=== PATIENT | female | born 2000 | race Caucasian/White ===

== ENCOUNTER → 2022-02-24 | Outpatient (CLI) | payer BC ==
[~2022-02-24] MED LIST: BACTRIM DS TAB1 EACH PO; CLARITIN10 M2 PO; IBUPROFEN600 MG PO; PRILOSEC OTC20 MG PO
== END ==
LOC: LAB 11:50
DX: Z32.00 Encounter for pregnancy test, result unknown (principal)
CPT/HCPCS: 36415; 84702

== ENCOUNTER 2022-03-03 20:51 | Emergency (ER) | payer OTHER ==
[2022-03-04] MEDS ORDERED: IBUPROFEN600 MG PO (03:31)
[2022-03-04] MEDS ORDERED: NORFLEX 100 MG100 MG PO (03:31)
== END 2022-03-04 03:38 | disposition home or self-care (01) ==
LOC: ER1 20:51
DX: S13.4XXA Sprain of ligaments of cervical spine, initial encounter (principal); S00.03XA Contusion of scalp, initial encounter; S40.012A Contusion of left shoulder, initial encounter; Z88.5 Allergy status to narcotic agent; V49.40XA Driver injured in collision with unspecified motor vehicles in traffic accident, initial encounter; Y92.410 Unspecified street and highway as the place of occurrence of the external cause
CPT/HCPCS: 70450; 71045; 72125; 72128; 81001; 87086; 99284

== ENCOUNTER → 2022-03-30 | Outpatient (CLI) | payer BC ==
[~2022-03-30] MED LIST changes: +NORFLEX 100 MG100 MG PO
== END ==
LOC: KOH-I 15:22
DX: N93.9 Abnormal uterine and vaginal bleeding, unspecified (principal)
CPT/HCPCS: 76856